=== PATIENT | male | born 2000 | race Two or more races ===

== ENCOUNTER 2025-01-22 22:59 | Emergency (ER) | payer MEDICAID, SELFPAY ==
[2025-01-22 23:02] VITALS: BMI 34.0
[2025-01-23 00:34] VITALS: BP 143/92; PULSE 79; RESP 19; TEMP 37.2; O2SAT 98
--- NOTE | 2025-01-23 00:38 | XR_ITS ---
Examination: Fingers, left hand first digit 3 views Technique: AP, oblique, lateral views left hand first digit 3 views. Exam date and time: January 15, 2025 0020 hrs. Indications: Injury to the hand today with first digit pain. Findings: No acute fracture No dislocation No foreign body Impression: No acute fracture
--- NOTE | 2025-01-23 00:39 | PD.EDHAND ---
Upper Extremity Injury RME/HPI General Chief Complaint: Hand/Wrist Problems Stated Complaint: LEFT THUMB INJURY Time Seen by Provider: 01/23/25 00:39 Arrival date/time: 01/22/25 22:59 24 year old male present to emergency room with c/o of left thumb injury today. LOCATION: thumb SEVERITY: Symptoms are described as being severe with limitations on activities of daily living QUALITY: Symptoms are described as being dull or achy CONTEXT: injury thumb while playing soccer DURATION/TIMING: The symptoms started approximately immediately prior to arrival ago and have been constant this then. ASSOCIATED SYMPTOMS: The patient is unable to identify any other associated symptoms. MODIFYING FACTORS: The patient is unable to identify any alleviating or aggravating symptoms. PERTINENT ROS: no fevers, no headache, no neck or chest pain, no unexplained nausea or vomiting, no focal neurological deficits REVIEW OF SYSTEMS: See History of Present Illness - with the exception of those mentioned in the history of present illness, all other systems reviewed and reported as negative GENERAL: In general the patient is awake, interactive, in an emergency department gurney. HEAD/EYES/EARS/NOSE/THROAT: normo-cephalic, atraumatic, mucus membranes are moist, anicteric, palpebral conjunctiva is pink, trachea is midline. NEUROLOGICAL: cranio-facial features are symmetric, moves all four extremities equally without obvious limitations or weakness. EXTREMITY: Left thumb base tenderness, decrease range of motion due to pain no tenderness to palpation over the long bones or large joints of the bilateral upper and lower extremities, no joint swelling, no joint erythema, no signs of trauma, no unilateral leg swelling and no peripheral edema. SKIN: warm, dry, well-perfused, no jaundice, no rash, no telangiectasias or petechia. PSYCH: calm, cooperative, no evidence of psychosis or agitation Related Data Previous Rx's ?Medication ?Instructions ?Recorded hydrocodone 7.5 mg-acetaminophen 1 tab PO Q6H #20 tabs 11/04/22 325 mg tablet diphenhydramine HCl 12.5 mg/5 mL 12.5 mg (5 mL) PO Q8H PRN rash 02/22/23 oral liquid (Benadryl Allergy) #120 mL diphenhydramine HCl 25 mg capsule 50 mg (2 x 25 mg) PO Q8H PRN 02/22/23 (Benadryl) allergic reaction #30 caps famotidine 40 mg tablet (Pepcid) 40 mg PO QDAY #14 tabs 02/22/23 hydrocortisone 0.5 % topical cream 1 applic topical BID PRN skin 06/23/23 irritation #28.4 grams Allergies Allergy/AdvReac Type Severity Reaction Status Date / Time No Known Allergies Allergy Verified 06/23/23 23:20 Course Course Course Narrative: xray to rule fx vs sprain thumb spica wear for 1 week xray will be overread by radiologist in the morning rice protocol take tylenol or motrin as need Quality Measures none Orders Category Date Time Status Splint / Immobilizer STAT Care 01/23/25 01:36 Active XR finger LT min 2V Stat Exams 01/23/25 00:38 Taken Vital Signs Vital signs: Vital Signs Temperature 98.9 F 01/23/25 00:34 Pulse Rate 79 01/23/25 00:34 Respiratory Rate 19 01/23/25 00:34 Blood Pressure 143/92 H 01/23/25 00:34 Pulse Oximetry (%) 98 01/23/25 00:34 Oxygen Delivery Method Room Air 01/23/25 00:34 Extremity Injury Patient data External records reviewed:: [facility] previous records Clinical information provided by:: patient Social determinants that could affect healthcare access:: none Patient has the following chronic illnesses:: n/a How is presenting disease/condition affected by chronic disease/condition?: no chronic disease Evaluation data The following diagnostics were reviewed and interpreted by me:: radiology exam(s) Lab and/or radiology exams considered but not ordered:: n/a Interpretation Summary: xray: no fx wet read Medications / Prescriptions Medications or Prescriptions considered but not ordered:: n/a Medication administrations:: n/a Consultations Consultation(s) initiated? (list below): No Diagnosis Upper Extremity Injury Differential Diagnosis: dislocation of finger, fracture of hand and other (thumb sprain/strain /contusion ) Most likely diagnosis given after review of the tests above:: thumb sprain/strain Admission Indicated Admission indicated?: not indicated Admission Request Was there a request for admission?: No Disposition Plan Disposition Plan: Discharge Discharge Attestation Discharge Attestation: The patient and all family members were given an opportunity to ask questions and understood the discharge instructions. Discharge instructions specifically effects, indications for sooner follow up or return to the emergency department, and the expected course of current diagnosis. Patient condition: Stable Discharge Plan Plan Patient Disposition: HOME (Self Care) Health Concerns: Follow with PMD as directed Take tylenol or motrin as need Return to ED if sx worsen Prescriptions/Referrals Prescriptions/Med Rec: No Action diphenhydramine HCl [Benadryl Allergy] 12.5 mg/5 mL liquid 12.5 mg PO Q8H PRN (Reason: rash) Qty: 120 0RF diphenhydramine HCl [Benadryl] 25 mg capsule 50 mg PO Q8H PRN (Reason: allergic reaction) Qty: 30 0RF famotidine [Pepcid] 40 mg tablet 40 mg PO QDAY Qty: 14 0RF hydrocortisone 0.5 % cream 1 applic topical BID PRN (Reason: skin irritation) Qty: 28.4 0RF hydrocodone-acetaminophen 7.5-325 mg tablet 1 tab PO Q6H MDD 4 Qty: 20 0RF Referrals: Nila Harris PA-C [Primary Care Provider] - In 1 week Problem List Clinical Impression: Left thumb sprain Patient/Caregiver Discharge Instructions Education Materials: ED Finger Sprain Print Language: Indian Stand Alone Forms: Viridiana Award Info., Patient Portal Info Letter
[2025-01-23 02:39] VITALS: RESP 18
== END 2025-01-23 02:40 | disposition home or self-care (01) ==
PROVIDERS: Emergency Provider Emergency Medicine; PCP Physician Assistant
DX: S63.602A Unspecified sprain of left thumb, initial encounter (principal); X58.XXXA Exposure to other specified factors, initial encounter; Y93.66 Activity, soccer
CPT/HCPCS: 29131; 73140; 99283

== ENCOUNTER 2025-03-08 22:24 | Emergency (ER) | payer MEDICAID, SELFPAY ==
[2025-03-08 22:24] VITALS: BMI 36.9
--- NOTE | 2025-03-08 22:28 | XR_ITS ---
Examination: Fingers, left hand fourth digit 3 views Technique: AP, oblique, lateral views left hand fourth digit 3 views. Exam date and time: March 08, 2025 10:32 PM Indications: Injury to the hand today with fourth digit pain Findings: No acute fracture No dislocation No foreign body Impression: No acute fracture
[2025-03-08 22:55] VITALS: BP 143/87; PULSE 69; RESP 18; TEMP 36.6; O2SAT 97
--- NOTE | 2025-03-09 01:38 | PD.EDHAND ---
Upper Extremity Injury RME/HPI General Chief Complaint: Hand/Wrist Problems Stated Complaint: LEFT RING FINGER INJURY WITH BALL Time Seen by Provider: 03/08/25 22:59 Arrival date/time: 03/08/25 22:24 24M with history of DM presents to ED with L ring finger pain after it was hit with a ball. Limitations: no limitations Related Data Previous Rx's ?Medication ?Instructions ?Recorded hydrocodone 7.5 mg-acetaminophen 1 tab PO Q6H #20 tabs 11/04/22 325 mg tablet diphenhydramine HCl 12.5 mg/5 mL 12.5 mg (5 mL) PO Q8H PRN rash 02/22/23 oral liquid (Benadryl Allergy) #120 mL diphenhydramine HCl 25 mg capsule 50 mg (2 x 25 mg) PO Q8H PRN 02/22/23 (Benadryl) allergic reaction #30 caps famotidine 40 mg tablet (Pepcid) 40 mg PO QDAY #14 tabs 02/22/23 hydrocortisone 0.5 % topical cream 1 applic topical BID PRN skin 06/23/23 irritation #28.4 grams Allergies Allergy/AdvReac Type Severity Reaction Status Date / Time No Known Allergies Allergy Verified 03/08/25 22:24 Review of Systems Review of Systems Systems Reviewed: All systems reviewed, normal except as documented Constitutional Constitutional: Reports system reviewed and no additional complaints, except as documented, Denies fever(s) and Denies headache(s) ENT Ears, Nose, Mouth, and Throat: Denies disequilibrium and Denies headache(s) Cardiovascular Cardiovascular: Reports system reviewed and no additional complaints, except as documented, Denies chest pain and Denies dyspnea Respiratory Respiratory: Reports system reviewed and no additional complaints, except as documented, Denies cough and Denies dyspnea Gastrointestinal Gastrointestinal: Reports system reviewed and no additional complaints, except as documented, Denies abdominal pain, Denies nausea and Denies vomiting Musculoskeletal Musculoskeletal: Reports as per HPI and Reports arthralgias Neurologic Neurologic: Reports system reviewed and no additional complaints, except as documented, Denies confusion, Denies disequilibrium and Denies headache(s) Psychiatric Psychiatric: Denies confusion Past Medical History Past Medical History NEUROLOGIC: Negative Seizures CARDIAC: Negative Cardiac Disorders or Congestive Heart Failure RESPIRATORY: Negative Chronic Obstructive Pulmonary Disease (COPD) or Asthma GENITOURINARY: Negative Renal Disease ENDOCRINE: Positive Diabetes Mellitus Type 2; Negative Diabetes Mellitus Type 1 HEMATOLOGIC: Negative Sickle Cell Disease OTHER HISTORY: Negative Blood Transfusions, Blood Transfusion Reaction or Anesthesia Reactions Social History SMOKING STATUS: Never smoker ED Exam General Limitations: Present no limitations General appearance: Present alert and in no apparent distress Head Head exam: Present atraumatic Eye Eye exam: Present normal appearance, PERRL and EOMI ENT ENT exam: Present normal exam, normal oropharynx and mucous membranes moist Neck Neck exam: Present normal inspection, full ROM and trachea midline Chest Chest inspection: Present normal inspection and symmetric chest wall rise Respiratory Respiratory exam: Present normal lung sounds bilaterally Cardiovascular Cardiovascular exam: Present regular rate, normal rhythm and normal heart sounds Abdominal Exam Abdominal exam: Present soft and normal bowel sounds Extremities Exam Extremities exam: Present full ROM Expanded Upper Extremity Exam Hand exam: Present full ROM (L ring finger), tenderness and swelling Back Exam Back exam: Present normal inspection and full ROM Neurological Exam Neurological exam: Present alert, oriented X3 and CN II-XII intact Psychiatric Psychiatric exam: Present normal affect and normal mood Skin Skin exam: Present warm, dry, intact and normal color Course Quality Measures none Orders Category Date Time Status Splint / Immobilizer STAT Care 03/08/25 22:59 Completed XR finger LT min 2V Stat Exams 03/08/25 22:28 Completed Vital Signs Vital signs: Vital Signs Temperature 97.9 F 03/08/25 22:55 Pulse Rate 69 03/08/25 22:55 Respiratory Rate 18 03/08/25 22:55 Blood Pressure 143/87 H 03/08/25 22:55 Pulse Oximetry (%) 97 03/08/25 22:55 Oxygen Delivery Method Room Air 03/08/25 22:55 O2 at 97% on RA and WNLs Extremity Injury MDM Narrative MDM Narrative:: 24M with history of DM presents to ED with L ring finger pain after it was hit with a ball. Physical exam reveals some L ring finger tenderness and swelling. ROM intact. Patient is afebrile, calm, and alert. XR no fx. Given finger protector and pediatric genetic counselor. Patient data External records reviewed:: [facility] previous records Clinical information provided by:: patient Social determinants that could affect healthcare access:: none Patient has the following chronic illnesses:: DM How is presenting disease/condition affected by chronic disease/condition?: uneffected by Evaluation data The following diagnostics were reviewed and interpreted by me:: radiology exam(s) Lab and/or radiology exams considered but not ordered:: ordered Interpretation Summary: above Medications / Prescriptions Medications or Prescriptions considered but not ordered:: not ordered Medication administrations:: n/a Consultations Consultation(s) initiated? (list below): No Diagnosis Upper Extremity Injury Differential Diagnosis: sprain and strain of wrist, fracture of wrist, finger sprain, dislocation of finger, Colles' fracture and fracture of hand Most likely diagnosis given after review of the tests above:: finger sprain Admission Indicated Admission indicated?: not indicated Admission Request Was there a request for admission?: No Disposition Plan Disposition Plan: Discharge Discharge Attestation Discharge Attestation: The patient and all family members were given an opportunity to ask questions and understood the discharge instructions. Discharge instructions specifically effects, indications for sooner follow up or return to the emergency department, and the expected course of current diagnosis. Patient condition: Stable Discharge Plan Plan Patient Disposition: HOME (Self Care) Disposition Comment: Stable Prescriptions/Referrals Prescriptions/Med Rec: No Action diphenhydramine HCl [Benadryl Allergy] 12.5 mg/5 mL liquid 12.5 mg PO Q8H PRN (Reason: rash) Qty: 120 0RF diphenhydramine HCl [Benadryl] 25 mg capsule 50 mg PO Q8H PRN (Reason: allergic reaction) Qty: 30 0RF famotidine [Pepcid] 40 mg tablet 40 mg PO QDAY Qty: 14 0RF hydrocortisone 0.5 % cream 1 applic topical BID PRN (Reason: skin irritation) Qty: 28.4 0RF hydrocodone-acetaminophen 7.5-325 mg tablet 1 tab PO Q6H MDD 4 Qty: 20 0RF Problem List Clinical Impression: Finger sprain Patient/Caregiver Discharge Instructions Education Materials: ED Finger Sprain Additional Instructions: Please follow-up with PCP within 24-48 hours and return immediately if symptoms worsen. If problem persists, recommend outpatient PT and/or MRI follow-up. In the meantime, rest, use ice/heat, and/or compression. Print Language: Northern Irish Stand Alone Forms: Patient Portal Info Letter PA/SUPPORT WORKER Supervising Physician SARAVANAN/HE Supervising Physician: Dr. Chanel
== END 2025-03-08 23:01 | disposition home or self-care (01) ==
LOC: SERX 23:12
PROVIDERS: Emergency Provider Emergency Medicine
DX: S63.615A Unspecified sprain of left ring finger, initial encounter (principal); W21.00XA Struck by hit or thrown ball, unspecified type, initial encounter
CPT/HCPCS: 73140; 99283

== ENCOUNTER 2025-06-11 19:25 | Emergency (ER) | payer MEDICAID, SELFPAY ==
[2025-06-11 19:27] VITALS: BMI 36.1
[2025-06-11 19:35] VITALS: BP 123/85; PULSE 70; RESP 16; TEMP 36.8; O2SAT 99
--- NOTE | 2025-06-11 20:30 | PD.EDLOWEX ---
Lower Extremity Injury RME/HPI General Chief Complaint: Extremity Injury, Lower Stated Complaint: LEFT KNEE INJURY Time Seen by Provider: 06/11/25 19:31 Arrival date/time: 06/11/25 19:25 RME / HPI RME / HPI Narrative: 24-year-old male presents to the ED with a complaint of left knee pain secondary to an injury he sustained while playing soccer approximately 1 hour prior to his arrival. He denies any previous injury. He states his knee bent underneath him, hyperflexion type injury, and he has had painful weightbearing and numbness to the knee since the injury. He denies any numbness or tingling to his left foot. Related Data Previous Rx's ?Medication ?Instructions ?Recorded hydrocodone 7.5 mg-acetaminophen 1 tab PO Q6H #20 tabs 11/04/22 325 mg tablet diphenhydramine HCl 12.5 mg/5 mL 12.5 mg (5 mL) PO Q8H PRN rash 02/22/23 oral liquid (Benadryl Allergy) #120 mL diphenhydramine HCl 25 mg capsule 50 mg (2 x 25 mg) PO Q8H PRN 02/22/23 (Benadryl) allergic reaction #30 caps famotidine 40 mg tablet (Pepcid) 40 mg PO QDAY #14 tabs 02/22/23 hydrocortisone 0.5 % topical cream 1 applic topical BID PRN skin 06/23/23 irritation #28.4 grams ibuprofen 600 mg tablet 600 mg PO Q8H PRN pain #30 tabs 06/11/25 Allergies Allergy/AdvReac Type Severity Reaction Status Date / Time No Known Allergies Allergy Verified 06/11/25 19:27 Review of Systems Review of Systems Systems Reviewed: All systems reviewed, normal except as documented Past Medical History Past Medical History NEUROLOGIC: Negative Seizures CARDIAC: Negative Cardiac Disorders or Congestive Heart Failure RESPIRATORY: Negative Chronic Obstructive Pulmonary Disease (COPD) or Asthma GENITOURINARY: Negative Renal Disease ENDOCRINE: Positive Diabetes Mellitus Type 2; Negative Diabetes Mellitus Type 1 HEMATOLOGIC: Negative Sickle Cell Disease OTHER HISTORY: Negative Blood Transfusions, Blood Transfusion Reaction or Anesthesia Reactions Social History SMOKING STATUS: Never smoker ED Exam Narrative Physical exam: A&O, afebrile and non-toxic appearing 24-year-old male, no acute distress. Lung are clear, RRR, Abdomen is non-distended. Left knee reveals no tenderness to the tibial tuberosity, medial or lateral knee/meniscus area. No pain with patellar movement. No pain or tenderness with medial or lateral stress. Negative anterior/posterior drawer sign. Moves all extremities well. CMS intact distally. Course Course Course Narrative: X-ray of the left knee reveals no acute fracture or dislocation. Small knee effusion noted per radiologist. Patient was given ibuprofen 600 mg p.o. Patient's left knee was wrapped with an Bryant wrap. Patient advised: Protect from further injury, rest, ice the left knee, compression with Bryant wrap, elevation. Quality Measures none Orders Category Date Time Status bryant wrap [Splint / Immobilizer] STAT Care 06/11/25 22:28 Ordered XR knee LT 3V Stat Exams 06/11/25 20:33 Completed Ibuprofen Tab [Motrin Tab] Med 06/11/25 22:28 Once 600 mg PO X1 ONE Vital Signs Vital signs: Vital Signs Temperature 98.3 F 06/11/25 19:35 Pulse Rate 70 06/11/25 19:35 Respiratory Rate 16 06/11/25 19:35 Blood Pressure 123/85 H 06/11/25 19:35 Pulse Oximetry (%) 99 06/11/25 19:35 Oxygen Delivery Method Room Air 06/11/25 19:35 Extremity Injury, Lower MDM Narrative MDM Narrative:: Symptoms, exam and diagnostic studies are consistent with: Left knee sprain with effusion. No fracture or dislocation. Patient was discharged home in stable condition. Patient/family advised to follow-up with their PCP in 24-48 hours. Encouraged to return to the ED for any new or worsening symptoms. Patient data External records reviewed:: None Clinical information provided by:: patient Social determinants that could affect healthcare access:: none Patient has the following chronic illnesses:: N/A How is presenting disease/condition affected by chronic disease/condition?: no chronic disease Evaluation data The following diagnostics were reviewed and interpreted by me:: radiology exam(s) Lab and/or radiology exams considered but not ordered:: N/A Interpretation Summary: As noted above Medications / Prescriptions Medications or Prescriptions considered but not ordered:: N/A Medication administrations:: As noted above Consultations Consultation(s) initiated? (list below): No Diagnosis Extremity Injury, Lower Differential Diagnosis: acute internal derangement of knee and other (Knee sprain, tibial plateau fracture, patellar fracture) Most likely diagnosis given after review of the tests above:: Knee sprain with effusion Admission Indicated Admission indicated?: not indicated Explain why admission is indicated or not indicated:: Patient is stable for discharge Admission Request Was there a request for admission?: No Admission Attestation Admission request attestation: N/A Disposition Plan Disposition Plan: Discharge Discharge Attestation Discharge Attestation: The patient and all family members were given an opportunity to ask questions and understood the discharge instructions. Discharge instructions specifically effects, indications for sooner follow up or return to the emergency department, and the expected course of current diagnosis. Patient condition: Stable Discharge Plan Plan Patient Disposition: HOME (Self Care) Discharge Disposition comment: Stable Prescriptions/Referrals Prescriptions/Med Rec: New ibuprofen 600 mg tablet 600 mg PO Q8H PRN (Reason: pain) Qty: 30 0RF No Action diphenhydramine HCl [Benadryl Allergy] 12.5 mg/5 mL liquid 12.5 mg PO Q8H PRN (Reason: rash) Qty: 120 0RF diphenhydramine HCl [Benadryl] 25 mg capsule 50 mg PO Q8H PRN (Reason: allergic reaction) Qty: 30 0RF famotidine [Pepcid] 40 mg tablet 40 mg PO QDAY Qty: 14 0RF hydrocortisone 0.5 % cream 1 applic topical BID PRN (Reason: skin irritation) Qty: 28.4 0RF hydrocodone-acetaminophen 7.5-325 mg tablet 1 tab PO Q6H MDD 4 Qty: 20 0RF Referrals: Audra Pederson FNP ([email or web address]) [Primary Care Provider] - In 1 week Problem List Clinical Impression: Acute internal derangement of knee, Left knee sprain Patient/Caregiver Discharge Instructions Education Materials: ED BRYANT Wrap, ED Knee Sprain Additional Instructions: Protect from further injury, rest, ice the left knee, compression with Bryant wrap, elevation. Follow-up with your primary care physician in 24 to 48 hours. Return to the ED for any new or worsening symptoms. Print Language: Estonian Stand Alone Forms: Viridiana Award Info., Patient Portal Info Letter SARAVANAN/HE Supervising Physician SARAVANAN/HE Supervising Physician: Dr. Rene
--- NOTE | 2025-06-11 20:33 | XR_ITS ---
Examination: Knee, left , 3 views Technique: Knee AP, lateral, oblique 3 views Date and time of exam: June 11, 20252033 hours INDICATIONS: Soccer injury to the knee today, knee pain FINDINGS: No fracture or dislocation. Small knee effusion IMPRESSION: No fracture or dislocation
[2025-06-11] MEDS: IBUPROFEN TAB 600 MG TABLET PO (22:38)
== END 2025-06-11 22:45 | disposition home or self-care (01) ==
PROVIDERS: Emergency Provider Emergency Medicine; PCP Nurse Practitioner Primary Care
DX: S83.92XA Sprain of unspecified site of left knee, initial encounter (principal); X50.1XXA Overexertion from prolonged static or awkward postures, initial encounter; Y93.66 Activity, soccer
CPT/HCPCS: 73562; 99283; A9270